=== PATIENT | female | born 1995 | race Two or more races ===

== ENCOUNTER 2020-05-07 01:37 | Emergency (ER) | payer BC, MEDICAID ==
[~2020-05-07] VITALS: Ht 172.7 cm; Wt 68.0 kg
[2020-05-07 01:47] VITALS: BP 122/82
[2020-05-07] MEDS ORDERED: SUMAtriptan SUCCINATE 6 MG/0.5 ML VL SC ONE (04:30)
[2020-05-07] MEDS ORDERED: ONDANSETRON ODT 4 MG TAB PO ONE (04:45)
[2020-05-07] MEDS ORDERED: SODIUM CHLORIDE 0.9% 500 ML IV ONE (05:00)
== END 2020-05-07 06:24 | disposition home or self-care (01) ==
LOC: EDBD 01:37 → ER 01:40
DX: G43.909 Migraine, unspecified, not intractable, without status migrainosus (principal); Z90.49 Acquired absence of other specified parts of digestive tract
CPT/HCPCS: 96360; 96372; 99283; J3030; J7030; Q0162